=== PATIENT | male | born 1960 ===

== ENCOUNTER 2017-05-24 10:22 | Emergency (ER) | payer BC ==
--- NOTE | 2017-05-24 12:26 | C.PDOC ---
History Of Present Illness 57yo male with history of diabetes, hypertension, presents to ED with complaints of left ankle pain and swelling after he twisted it while dancing 3 days ago. Patient states the pain has been constantly worsening and is worsened with bearing weight. He has been taking Motrin 400mg at home with minimal relief of pain. He denies any weakness, numbness or tingling. Patient offers no other medical complaints. Time Seen by Provider: 05/24/17 11:08 Chief Complaint (Nursing): Lower Extremity Problem/Injury History Per: Patient History/Exam Limitations: no limitations Onset/Duration Of Symptoms: Days Current Symptoms Are (Timing): Worse Additional History Per: Patient - Ankle/Foot Description Of Injury: Twisted Currently Unable To: Bear Weight Past Medical History Reviewed: Historical Data, Nursing Documentation, Vital Signs Vital Signs: Last Vital Signs Temp 98 F 05/24/17 12:32 Pulse 93 H 05/24/17 12:32 Resp 20 05/24/17 12:32 BP 121/78 05/24/17 12:32 Pulse Ox 95 05/24/17 12:32 - Medical History PMH: Diabetes, HTN Surgical History: No Surg Hx Family History: States: No Known Family Hx - Social History Hx Alcohol Use: Yes Hx Substance Use: No - Immunization History Hx Tetanus Toxoid Vaccination: No Hx Influenza Vaccination: No Hx Pneumococcal Vaccination: No Review Of Systems Except As Marked, All Systems Reviewed And Found Negative. Musculoskeletal: Positive for: Foot Pain (left ankle) Neurological: Negative for: Weakness, Numbness Physical Exam - Physical Exam Appears: Non-toxic, No Acute Distress Skin: Normal Color Head: Normacephalic Eye(s): bilateral: Normal Inspection Neck: Normal ROM, Supple Chest: Symmetrical Cardiovascular: Rhythm Regular Respiratory: Normal Breath Sounds Extremity: Tenderness (left lateral malleolus), No Calf Tenderness, No Deformity , Swelling (left ankle) Pulses: Left Dorsalis Pedis: Normal Neurological/Psych: Oriented x3 Medical Decision Making Medical Decision Making: Impression: Ankle sprain Plan: -- XR left ankle -- Motrin 400 mg PO -- Tylenol 975 mg PO Disposition Counseled Patient/Family Regarding: Studies Performed, Diagnosis, Need For Followup, Rx Given - Disposition Disposition: HOME/ ROUTINE Disposition Time: 14:02 Condition: STABLE Instructions: Ankle Sprain Forms: [employer] ([place]), Work Excuse, General Discharge Instructions - POA Present On Arrival: None - Clinical Impression Clinical Impression: Ankle sprain - Scribe Statement The provider has reviewed the documentation as recorded by the Scribe (Ros Mistry) Provider Attestation: All medical record entries made by the Scribe were at my direction and personally dictated by me. I have reviewed the chart and agree that the record accurately reflects my personal performance of the history, physical exam, medical decision making, and the department course for this patient. I have also personally directed, reviewed, and agree with the discharge instructions and disposition.
[2017-05-24 12:32] VITALS: TEMP 98
--- NOTE | 2017-05-24 14:12 | RAD ---
PROCEDURE: Left Ankle Radiographs. HISTORY: swelling, pain COMPARISON: None FINDINGS: BONES: Bone alignment and mineralization are normal. There is no acute displaced fracture or bone destruction. 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 There is a prominent plantar calcaneal spur and dorsal calcaneal enthesophyte. JOINTS: Normal. No osteoarthritis. Ankle mortise maintained. Talar dome intact SOFT TISSUES: There is mild periarticular soft tissue swelling. OTHER FINDINGS: None. IMPRESSION: No acute fracture or dislocation. Large os trigonum which could potentially cause posterior impingement syndrome. If clinically indicated, correlation with MRI may be performed. Prominent plantar calcaneal spur and dorsal calcaneal enthesophyte.
[2017-05-24 14:17] VITALS: BP 125/73; PULSE 90; RESP 18; O2SAT 96
== END 2017-05-24 14:16 | disposition home or self-care (01) ==
LOC: C.ER 10:22
DX: S93.402A Sprain of unspecified ligament of left ankle, initial encounter (principal); X50.1XXA Overexertion from prolonged static or awkward postures, initial encounter; Y93.41 Activity, dancing; Y92.9 Unspecified place or not applicable